=== PATIENT | male | born 1975 | race Caucasian/White ===

== ENCOUNTER → 2019-03-30 | Outpatient (CLI) | payer BC | LOC: SLEEP 21:25 | PROVIDERS: ATTEND Otolaryngology | DX: G47.33 Obstructive sleep apnea (adult) (pediatric) (principal) | CPT/HCPCS: 95811 ==

== ENCOUNTER → 2019-07-27 | Outpatient (CLI) | payer BC ==
[~2019-07-27] MED LIST: GADOBENATE DIMEGLUMINE 1 ML IV ONE; IOPAMIDOL 300 MG/ML 15ML VIAL IT ONE
--- NOTE | 2019-07-27 11:21 | Diagnostic Imaging Report ---
TECHNIQUE: Magnetic resonance imaging of the LEFT SHOULDER was performed after intra-articular injection of contrast. HISTORY: ANTERIOR SUBLUXTION OF LEFT HUMERUS , wear and tear, pain COMPARISON: None available. FINDINGS: MUSCLES AND TENDONS: Rotator Cuff: Tendons: Supraspinatus and Infraspinatus: Mild thickening and increased intrasubstance signal of the posterior conjoined tendon. Subtle articular and bursal sided fraying. A minimal amount of contrast extending from the articular surface of the distal tendon towards the greater trochanteric foot print (series 3 images 12 through 14). No full thickness tear or tendon retraction. Teres Minor: Intact Subscapularis: Intact Muscles: No focal muscle atrophy. Biceps Tendon: The long head of the biceps tendon is intact and within the intertubercular groove. GLENOHUMERAL JOINT: Glenoid Labrum: Irregular linear contrast at the base of the superior and posterosuperior labrum, subtle extension into the adjacent biceps anchor. Focal contrast undercutting the posterior labrum (series 2 image 15). Articular Cartilage: Focal (measuring up to 5 mm) high-grade cartilage defect with marginal fibrillation at the anteroinferior glenoid (series 2, images 16-18). Joint Fluid: Intra-articular contrast. ACROMIOCLAVICULAR JOINT: Moderate hypertrophic degenerative changes of the acromioclavicular joint, associated subchondral cystic changes and edema. No effusion. BONE: The acromion is unremarkable. The bone marrow signal is heterogeneous, compatible with red marrow conversion, no specific evidence of a focal bone marrow replacing abnormality. No acute fracture. SOFT TISSUES: Otherwise, unremarkable. IMPRESSION: 1. Tearing of the superior, posterosuperior, and posterior labrum, as above. 2. Focal high-grade cartilage defect at the anteroinferior glenoid. 3. Tendinosis of the posterior conjoined supraspinatus infraspinatus tendons, including fraying and subtle focal delamination extending from the articular surface towards the foot print. 4. Moderate acromioclavicular osteoarthrosis. Signed by: Dr. Juarez Oliveira D.O., M.M.M. on 07/27/2019 11:17 AM
--- NOTE | 2019-07-28 08:55 | Diagnostic Imaging Report ---
PROCEDURE: Image-guided arthrogram Procedural Personnel Attending physician(s): Taurus Gonzalez MD Fellow physician(s): None Resident physician(s): None Advanced practice provider(s): None Pre-procedure diagnosis: Left shoulder pain Post-procedure diagnosis: Same Indication: Left shoulder pain, fluoroscopically guided arthrogram for MRI arthrogram. Additional clinical history: None Complications: No immediate complications. IMPRESSION: Image guided left glenohumeral joint arthrogram. Plan: To MRI for MR arthrogram of left shoulder PROCEDURE SUMMARY: - Target: Left glenohumeral joint - Fluoroscopically guided left glenohumeral arthrogram. PROCEDURE DETAILS: Pre-procedure Consent: Informed consent for the procedure including risks, benefits and alternatives was obtained and time-out was performed prior to the procedure. Preparation: The site was prepared and draped using maximal sterile barrier technique including cutaneous antisepsis. Anesthesia/sedation Level of anesthesia/sedation: No sedation Arthrogram Under Fluoroscopy guidance following 1% lidocaine local anesthesia, a 20 gauge spinal needle was advanced to the left glenohumeral joint and intra-articular positioning confirmed with injection of 0.5cc Isovue 370. Subsequently, 15cc of the MRI arthrogram cocktail (consisting of 10cc NS, 0.1cc gadolinium based contrast, and 10cc [id number]) was injected. Fluoroscopic images confirm intra-articular injection. Radiation Dose Fluoroscopy time: 4.2 minutes Cumulative dose: 25.7 mGy Additional Details Additional description of procedure: None Equipment details: None Specimens removed: None Estimated blood loss (mL): Minimal Attestation Signer name: Taurus Gonzalez MD I attest that I was present for the entire procedure. I reviewed the stored images and agree with the report as written. Signed by: Taurus Gonzalez MD on 07/28/2019 8:51 AM
== END ==
LOC: DX 07:37
PROVIDERS: ATTEND Specialist
DX: S43.012A Anterior subluxation of left humerus, initial encounter (principal)
CPT/HCPCS: 23350; 73222; 77002; A9577; Q9967

== ENCOUNTER → 2019-08-15 | Outpatient (RCR) | payer BC | LOC: PT 13:00 | PROVIDERS: ATTEND Specialist | DX: S43.432D Superior glenoid labrum lesion of left shoulder, subsequent encounter (principal) ==

== ENCOUNTER 2019-09-12 09:00 | Outpatient (RCR) | payer BC | END 2019-09-15 | LOC: PT 09:00 | PROVIDERS: ATTEND Specialist | DX: S43.432D Superior glenoid labrum lesion of left shoulder, subsequent encounter (principal) ==

== ENCOUNTER → 2020-11-20 | Outpatient (CLI) | payer OTHER ==
[~2020-11-20] MED LIST changes: +COVID-19 VACC, MRNA(MODERNA)/PF 100 MCG/0.5 ML VIAL IM ONE; -GADOBENATE DIMEGLUMINE 1 ML IV ONE; -IOPAMIDOL 300 MG/ML 15ML VIAL IT ONE
== END | disposition home or self-care (01) ==
LOC: VACCPMC 10:00
DX: Z23 Encounter for immunization (principal); Z20.822 Contact with and (suspected) exposure to COVID-19

== ENCOUNTER → 2020-12-24 | Outpatient (CLI) | payer OTHER ==
[2020-12-24 10:16] LABS: BASOPHILS # (AUTO) 0.1 (0.0-0.1); BASOPHILS % 0.6 % (0.0-1.0); EOSINOPHILS # (AUTO) 0.2 (0.0-0.4); EOSINOPHILS % 1.8 % (0.0-6.0); HEMATOCRIT 45.5 % (38.2-49.6); HEMOGLOBIN 15.4 g/dL (14.0-18.0); LYMPHOCYTES # (AUTO) 2.5 (1.0-3.2); LYMPHOCYTES % 26.3 % (18.0-39.1); MEAN CORPUSCULAR HEMOGLOBIN 29.7 pg (28-32); MEAN CORPUSCULAR HGB CONC 33.8 g/dL (31-35); MEAN CORPUSCULAR VOLUME 87.8 fL (81-99); MONOCYTES # (AUTO) 0.7 (0.2-0.8); MONOCYTES % 7.6 % (4.4-11.3); NEUTROPHILS # (AUTO) 6.1 (2.1-6.9); PLATELET COUNT 301 x10e3/uL (140-360); RED BLOOD COUNT 5.18 x10e6/uL (4.3-5.7); RED CELL DISTRIBUTION WIDTH 13.3 % (11.7-14.4)
[2020-12-24 10:19] LABS: CLARITY,URINE CLEAR (CLEAR); COLOR,URINE YELLOW (YELLOW); KETONES,URINE NEGATIVE (NEGATIVE); LEUKOCYTE ESTERASE ,URINE NEGATIVE (NEGATIVE); NITRITE,URINE NEGATIVE (NEGATIVE); PROTEIN,URINE DIPSTICK NEGATIVE (NEGATIVE); URINE UROBILINOGEN 0.2 mg/dL (0.2 - 1)
[2020-12-24 10:28] LABS: MUCUS,URINE RARE (RARE); RBC,URINE 0-5 /HPF (0-5); WBC,URINE (MAN) 0-5 /HPF (0-5)
[2020-12-24 10:42] LABS: ALANINE AMINOTRANSFERASE 45 IU/L (0-55); ALBUMIN 4.2 g/dL (3.5-5.0); ALBUMIN/GLOBULIN RATIO 1.4 (0.8-2.0); ALKALINE PHOSPHATASE 81 IU/L (40-150); ANION GAP 11.8 mmol/L (8-16); BLOOD UREA NITROGEN 16 mg/dL (7-26); BUN/CREATININE RATIO 17 (6-25); CALCIUM 8.7 mg/dL (8.4-10.2); CARBON DIOXIDE 25 mmol/L (22-29); CHLORIDE 103 mmol/L (98-107); CHOL/HDL RATIO 5.1 (3.9-4.7); CHOLESTEROL 180 MD/DL (0-199); CREATININE, SERUM 0.92 mg/dL (0.72-1.25); EST GLOMERULAR FILTRATION RATE > 60 ML/MIN (60-); GLUCOSE 116 mg/dL (74-118); HDL CHOLESTEROL 35 MG/DL (40-60); LDL CHOLESTEROL 118 MG/DL (60-130); POTASSIUM 3.8 mmol/L (3.5-5.1); SODIUM 136 mmol/L (136-145); TRIGLYCERIDES 137 MG/DL (0-149)
[2020-12-24 11:01] LABS: THYROID STIMULATING HORMONE 1.822 uIU/mL (0.350-4.940)
== END ==
LOC: LAB 10:02
PROVIDERS: ATTEND Family Medicine
DX: N40.1 Benign prostatic hyperplasia with lower urinary tract symptoms (principal); F32.1 Major depressive disorder, single episode, moderate; F90.0 Attention-deficit hyperactivity disorder, predominantly inattentive type; F41.9 Anxiety disorder, unspecified; N52.9 Male erectile dysfunction, unspecified
CPT/HCPCS: 36415; 80053; 80061; 81001; 84152; 84443; 85025

== ENCOUNTER → 2020-12-24 | Outpatient (CLI) | payer OTHER | END | DRG 951 | LOC: VACCPMC 09:39 | DX: Z23 Encounter for immunization (principal); Z20.822 Contact with and (suspected) exposure to COVID-19 | CPT/HCPCS: 0012A; 91301 ==